=== PATIENT | female | born 2000 | race Caucasian/White ===

== ENCOUNTER 2022-09-02 13:59 | Emergency (ER) | payer MEDICAID ==
[~2022-09-02] VITALS: Ht 160 cm; Wt 100.0 kg
[2022-09-02 15:03] VITALS: BP 126/79
[2022-09-02] MEDS ORDERED: IBUP-1554 PO (15:51)
== END 2022-09-02 16:06 | disposition home or self-care (01) ==
LOC: EMS 14:03
DX: S63.501A Unspecified sprain of right wrist, initial encounter (principal); X58.XXXA Exposure to other specified factors, initial encounter; Y93.89 Activity, other specified; Y92.89 Other specified places as the place of occurrence of the external cause; Y99.8 Other external cause status
CPT/HCPCS: 99283

== ENCOUNTER 2022-11-15 11:48 | Emergency (ER) | payer MEDICAID ==
[~2022-11-15] VITALS: Ht 160 cm; Wt 100.0 kg
[~2022-11-15 11:48] MED LIST: IBUP-1554 PO
[2022-11-15 12:23] LABS: COVID AG,FIA SOURCE NASAL SWAB
[2022-11-15 12:45] LABS: INFLUENZA TYPE A NEGATIVE FOR TYPE A (NEGATIVE); INFLUENZA TYPE B NEGATIVE FOR TYPE B (NEGATIVE)
[2022-11-15] MEDS ORDERED: AMOX TR/POT CLAV 875 MG/125 MG TABLET PO ONE (14:00)
[2022-11-15] MEDS ORDERED: IBUPROFEN 600 MG TABLET PO ONE (14:00)
[2022-11-15 14:05] VITALS: BP 129/80
[2022-11-15] MEDS ORDERED: AMOX1TAB16 PO (14:22)
[2022-11-15] MEDS ORDERED: IBUP-1492 PO (14:25)
== END 2022-11-15 14:37 | disposition home or self-care (01) ==
LOC: EMS 11:49
DX: J02.0 Streptococcal pharyngitis (principal); M79.10 Myalgia, unspecified site; Z20.822 Contact with and (suspected) exposure to COVID-19
CPT/HCPCS: 87430; 87804; 99283

== ENCOUNTER 2023-02-26 13:35 | Emergency (ER) | payer MEDICAID ==
[~2023-02-26] VITALS: Ht 160 cm; Wt 102.3 kg
[~2023-02-26 13:35] MED LIST changes: +AMOX1TAB16 PO; +IBUP-1492 PO; -IBUP-1554 PO
[2023-02-26 13:59] VITALS: BP 132/83; PULSE 112; RESP 16; TEMP 101.6
[2023-02-26 14:54] LABS: COVID AG,FIA SOURCE NASAL SWAB
[2023-02-26] MEDS ORDERED: GuaiFENesin/D-METHORPHAN [SUGAR-FREE] 200-20MG/10 ML SYRUP UDCUP PO ONE (15:00)
[2023-02-26] MEDS ORDERED: ACETAMINOPHEN 500 MG TABLET PO ONE (15:00)
[2023-02-26] MEDS ORDERED: IBUPROFEN 600 MG TABLET PO ONE (15:00)
[2023-02-26 15:42] LABS: INFLUENZA TYPE A NEGATIVE FOR TYPE A (NEGATIVE); INFLUENZA TYPE B NEGATIVE FOR TYPE B (NEGATIVE)
[2023-02-26] MEDS ORDERED: IBUP-1554 PO (16:12)
[2023-02-26] MEDS ORDERED: ONDA-104 PO (16:12)
[2023-02-26] MEDS ORDERED: GUAIFDM PO (16:12)
[2023-02-26] MEDS ORDERED: ACET-2080 PO (16:12)
== END 2023-02-26 16:42 | disposition home or self-care (01) ==
LOC: EMS 13:49
DX: U07.1 COVID-19 (principal); J06.9 Acute upper respiratory infection, unspecified
CPT/HCPCS: 87804; 99284; Z7502; Z7610

== ENCOUNTER 2024-01-27 16:20 | Emergency (ER) | payer MEDICAID ==
[~2024-01-27] VITALS: Ht 160 cm; Wt 108.0 kg
[~2024-01-27 16:20] MED LIST changes: +ACET-2080 PO; -AMOX1TAB16 PO; +GUAIFDM PO; -IBUP-1492 PO; +IBUP-1554 PO; +ONDA-104 PO
[2024-01-27 16:28] VITALS: BP 122/78; PULSE 85; RESP 16; TEMP 98
== END 2024-01-27 19:39 | disposition home or self-care (01) ==
LOC: EMS 16:20
DX: S67.191A Crushing injury of left index finger, initial encounter (principal); X58.XXXA Exposure to other specified factors, initial encounter; Y93.89 Activity, other specified; Y92.89 Other specified places as the place of occurrence of the external cause; Y99.8 Other external cause status
CPT/HCPCS: 99283

== ENCOUNTER 2024-06-16 10:53 | Emergency (ER) | payer MEDICAID ==
[~2024-06-16] VITALS: Ht 160 cm; Wt 113.6 kg
[2024-06-16 11:45] LABS: BASOPHILS % (AUTO) 0.3 % (0.0-2.0); EOSINOPHILS % (AUTO) 0.6 % (1.0-6.0); HEMATOCRIT 43.7 % (36-46); HEMOGLOBIN 14.1 g/dL (12.0-16.0); LYMPHOCYTES # (AUTO) 0.8 K/uL (1.0-4.8); LYMPHOCYTES % (AUTO) 5.6 % (22.0-44.0); MEAN CORPUSCULAR HEMOGLOBIN 27.4 pg (26.0-34.0); MEAN CORPUSCULAR HGB CONC 32.2 G/dL (31.0-37.0); MEAN CORPUSCULAR VOLUME 85 fL (80-100); MONOCYTES # (AUTO) 0.4 K/uL (0.1-1.0); NEUTROPHILS # (AUTO) 12.8 K/uL (1.8-7.7); PLATELET COUNT (AUTO) 387 K/uL (150-450); RED BLOOD CELL COUNT(AUTO) 5.15 MIL/uL (4.00-5.20); RED CELL DISTRIBUTION WIDTH 13.8 % (11.5-14.5); WHITE BLOOD COUNT (AUTO) 14.1 K/uL (4.5-11.0)
[2024-06-16 11:48] LABS: NEUTROPHILS % (AUTO) 90.5 % (40.0-70.0)
[2024-06-16] MEDS: ONDANSETRON HCL 4 MG/2 ML VIAL IVP ONE (11:55)
[2024-06-16] MEDS: SODIUM CHLORIDE 0.9% 1,000 ML IV ONE ×2 (11:55→13:43)
[2024-06-16 12:12] LABS: ANION GAP 9 mmol/L (8-16); CALCIUM, TOTAL 8.9 mg/dL (8.8-10.5); CARBON DIOXIDE 25 mmol/L (22-29); CHLORIDE 102 mmol/L (98-107); CREATININE 0.82 mg/dL (0.60-1.30); GLOMERULAR FILTR. RATE CALC > 60 mL/min (>60); GLUCOSE,RANDOM 119 mg/dL (70-110); SODIUM SERUM 136 mmol/L (136-145); UREA NITROGEN, BLOOD 13 mg/dL (7-18)
[2024-06-16 12:12] LABS: APPEARANCE,URINE CLEAR (CLEAR); BILIRUBIN,URINE NEGATIVE (NEGATIVE); COLOR,URINE LIGHT YELLOW (YELLOW); GLUCOSE, URINE (UA) NEGATIVE (NEGATIVE); LEUKOCYTE ESTERASE ,URINE NEGATIVE (NEGATIVE); NITRATE,URINE NEGATIVE (NEGATIVE); OCCULT BLOOD,URINE TRACE (NEGATIVE); PH,URINE 5.5 (5.0-8.0); PROTEIN,URINE TRACE mg/dL (NEGATIVE); UROBILINOGEN,URINE <=1.0 mg/dL (<=1.0)
[2024-06-16 12:23] LABS: HCG,QUANTITATIVE < 1 mIU/mL (0-6); LIPASE 32 U/L (16-77)
[2024-06-16 12:30] LABS: BACTERIA,URINE None Seen /HPF (None Seen); RBC,URINE 0-2 /HPF (0-2); SQUAMOUS EPITHELIAL CELL,UR Few /LPF (None Seen); WBC,URINE None Seen /HPF (0-5)
[2024-06-16] MEDS: ACETAMINOPHEN 500 MG TABLET PO ONE (13:15)
[2024-06-16] MEDS: MORPHINE SULFATE 2 MG/ML SYRINGE IVP ONE (13:45)
[2024-06-16] MEDS: METOCLOPRAMIDE HCL 5 MG/ML 2 ML VIAL IVP ONE (15:50)
[2024-06-16] MEDS: DiphenhydrAMINE HCL 50 MG/ML VIAL IVP ONE (15:50)
[2024-06-16 17:15] VITALS: BP 119/73; PULSE 107; RESP 18; TEMP 99.7; O2SAT 98
[2024-06-16] MEDS ORDERED: ONDA-104 PO (17:48)
== END 2024-06-16 17:31 | disposition home or self-care (01) ==
LOC: EMS 10:59
DX: R19.7 Diarrhea, unspecified (principal); R11.2 Nausea with vomiting, unspecified
CPT/HCPCS: 99285; 96374; 96375; 96361; 80048; 81001; 83690; 84702; 85025; 36415; J1200; J2765; J2270; J2405; J7030

== ENCOUNTER 2024-08-30 21:24 | Emergency (ER) | payer MEDICAID ==
[~2024-08-30] VITALS: Ht 160 cm; Wt 113.6 kg
[~2024-08-30 21:24] MED LIST changes: -ACET-2080 PO; -GUAIFDM PO; -IBUP-1554 PO
[2024-08-30 21:29] VITALS: TEMP 98.1
[2024-08-30] MEDS ORDERED: CYCL-448 PO (22:55)
[2024-08-30] MEDS: KETOROLAC TROMETHAMINE 30 MG/ML VIAL IM ONE (23:14)
[2024-08-30] MEDS: LIDOCAINE 5% TRANSDERMAL PATCH TD ONE (23:14)
[2024-08-30 23:47] VITALS: BP 133/76; PULSE 100; RESP 18; O2SAT 98
== END 2024-08-31 02:52 | disposition home or self-care (01) ==
LOC: EMS 21:28
DX: M79.18 Myalgia, other site (principal); M54.2 Cervicalgia
CPT/HCPCS: 99283; 84703; 36415; 96372; J1885

== ENCOUNTER 2025-03-24 07:08 | Emergency (ER) | payer MEDICAID ==
[~2025-03-24] VITALS: Ht 160 cm; Wt 115.0 kg
[~2025-03-24 07:08] MED LIST changes: +CYCL-448 PO
[2025-03-24 07:32] LABS: COVID AG,FIA SOURCE NASAL SWAB
[2025-03-24 08:01] LABS: INFLUENZA TYPE A NEGATIVE FOR TYPE A (NEGATIVE); INFLUENZA TYPE B NEGATIVE FOR TYPE B (NEGATIVE); SARS-COV2 (COVID) ANTIGEN,FIA Negative (Negative)
[2025-03-24] MEDS ORDERED: BENZ-227 PO (08:26)
[2025-03-24] MEDS ORDERED: IBUP-1554 PO (08:26)
[2025-03-24] MEDS ORDERED: GUAIFDM PO (08:26)
[2025-03-24] MEDS ORDERED: HYDR-4062 PO (08:26)
[2025-03-24] MEDS: HYDROCODONE/ACETAMINOPHEN 5-325 MG TABLET PO ONE (08:29)
[2025-03-24] MEDS: GuaiFENesin/D-METHORPHAN [SUGAR-FREE] 200-20MG/10 ML SYRUP UDCUP PO ONE (08:29)
[2025-03-24] MEDS: KETOROLAC TROMETHAMINE 60 MG/2 ML VIAL IM ONE (08:29)
[2025-03-24] MEDS: ACETAMINOPHEN 500 MG TABLET PO ONE (08:59)
[2025-03-24 10:08] VITALS: BP 127/77; PULSE 105; RESP 17; TEMP 101.8; O2SAT 98
== END 2025-03-24 10:23 | disposition home or self-care (01) ==
LOC: EMS 07:08
DX: M60.9 Myositis, unspecified (principal); J06.9 Acute upper respiratory infection, unspecified; Z20.822 Contact with and (suspected) exposure to COVID-19; Z79.899 Other long term (current) drug therapy
CPT/HCPCS: 99284; 87426; 87804; 96372; J1885